=== PATIENT | female | born 1950 | race Caucasian/White ===

== ENCOUNTER 2016-09-30 05:52 | Emergency (ER) | payer MEDICARE, BC ==
--- NOTE | 2016-09-30 19:52 | ER ---
ADMIT: 09/30/2016 RM/LOC: ER [facility] MR#: [id number] [address] [address] [place] [address] Emergency Room Report SEX: F AGE: 66 : 1950 DATE: 09/30/2016 CHIEF COMPLAINT: Abdominal pain. HISTORY OF PRESENT ILLNESS: The patient is a 66-year-old female with metastatic uterine cancer, status post recent VAD and ongoing left ureteral stent for obstruction from metastatic disease. States for the past 3-4 days, she has had increasing right lower quadrant abdominal pain associated with anorexia and nausea. Denies any fevers, chills, vomiting, diarrhea, urgency or dysuria. ALLERGIES: NONE. MEDICATIONS: Please see nurse's MAR. ILLNESSES: Metastatic uterine cancer. OPERATIONS: 1. Hysterectomy. 2. Cataract extraction. 3. Nasal surgery. 4. Venous access port. 5. Left ureteral stent. SOCIAL HISTORY: . Nonsmoker. Nondrinker. No illicit drugs. FAMILY HISTORY: Negative per chart review. REVIEW OF SYSTEMS: A 12-point review of systems negative for all other systems, illnesses, or operations except as outlined above. PHYSICAL EXAMINATION: VITAL SIGNS: Temp 97, pulse 86, respirations 16, BP 171/85, SaO2 of 96% on room air. GENERAL: Nontoxic, non-diaphoretic without jaundice or icterus. HEENT: Normocephalic. No evidence of epistaxis, rhinorrhea, or otorrhea. NECK: Supple without lymphadenopathy or thyromegaly. CHEST: Clear. Breath sounds equal. HEART: Regular rate and rhythm without murmur, gallop, or edema. ABDOMEN: Soft, tender right lower quadrant without mass or megaly. Bowel sounds hypoactive. EXTREMITIES: No evidence of Homans sign, synovitis, or dermatitis. NEURO: EOMI. PERRLA. No evidence of drift, dysarthria, or ataxia. Gait normal. MENTAL STATUS: Alert, oriented, and cooperative without delusions, hallucinations, or abnormal thought content. MEDICAL DECISION MAKING: CT of abdomen and pelvis shows dilated cecum with inflammatory changes around the cecum, but no identifiable appendix. Likewise, inflammatory changes in the sigmoid rectal area, possibly related to metastatic uterine cancer. The patient is due for a staging colonoscopy in ADMIT: 09/30/2016 RM/LOC: ER [facility] MR#: [id number] [facility] [address] [address] [place] [address] [place] [address] Emergency Room Report SEX: F AGE: 66 : 1950 preparation for left nephrectomy next week. Normal CBC except hemoglobin 11.8. CRP 6.79. Lactic 1.1. Sodium 128, potassium 3.5. Troponin less than 0.015. UA 6 wbc's, 2+ ketones, 1+ leukocyte esterase. Lipase 45. The patient was given IV fluids, Zofran, Dilaudid with improvement of pain. Notified Dr. Blankenship of admission, who agreed and gave orders to nursing staff. Notified Dr. Art of consult. DIAGNOSES: 1. Metastatic uterine cancer, pending left nephrectomy. 2. Right lower quadrant abdominal pain, possible cecitis versus atypical appendicitis. 3. Hyponatremia. RECOMMENDATION: Admit inpatient Med/Surg for Dr. Blankenship. ADMISSION/DISCHARGE CONDITION: Fair. CODE STATUS: The patient is a full code. Richard Preston MD/ modl JOB #: [id number] CC: Richard Preston MD, Attending Physician Tavon Greene MD, Family Physician MD Stormy Pena MD Adam B Brosz, MD
--- NOTE | 2016-10-04 15:00 | CO ---
ADMIT: 09/30/2016 RM/LOC: ER [facility] MR#: [id number] [address] [address] [address] [address] Consultation SEX: F AGE: 66 : 1950 DATE OF CONSULTATION: 09/30/2016 ATTENDING PHYSICIAN: Richard Preston CONSULTING PHYSICIAN: Castro Art MD HISTORY OF PRESENT ILLNESS: This is a 66-year-old female, seen in the Emergency Department in consultation for possible appendicitis. Yessica describes a several month history of intermittent central abdominal pain, radiating to both lower quadrants. She has had associated diarrhea over this similar time frame, which has been quite severe. She has complicated medical history with recurrent endometrial cancer and has undergone radiation treatments in addition to her prior chemotherapy. Her last chemotherapy treatment was in October of last year. She was scheduled for colonoscopy tomorrow with Dr. Greene and was scheduled to start a bowel prep today for that. Saturday, she had worsening of the abdominal pain and had to take oral narcotic pain medication to help. The pain persisted and that is what brought her to the ER. She was evaluated with laboratory studies. She has a normal white blood cell count on evaluation in the ER. CT scan of the abdomen and pelvis was performed, and was felt to initially be indeterminate for appendicitis. PAST MEDICAL HISTORY: Recurrent endometrial cancer. ALLERGIES: NO KNOWN MEDICAL ALLERGIES. CURRENT MEDICATIONS: Please see nursing notes. SOCIAL HISTORY: She is a former smoker. Lives with her . REVIEW OF SYSTEMS: A 10-point review of systems is performed. She does describe the abdominal pain and bowel function spinning frame changer the last several months. She has some fatigue intermittently. Remainder of the 10-point review of systems is negative for recent change. FAMILY HISTORY: Noncontributory. PHYSICAL EXAMINATION: GENERAL: The patient is currently alert, oriented and appears nontoxic, in no acute distress. VITAL SIGNS: Admission vital signs are stable. She is afebrile. HEENT: Sclerae appear anicteric. NECK: Supple, without lymphadenopathy. LUNGS: Clear bilaterally. HEART: Regular rate and rhythm. ABDOMEN: Tender mildly over the right mid abdomen without cherelle peritoneal sign or palpable mass. Bowel sounds are present and normoactive. EXTREMITIES: Calves are soft bilaterally with no clubbing, cyanosis, or edema. ADMIT: 09/30/2016 RM/LOC: [facility] MR#: [id number] [address] [address] [place] [facility] [place] [address] Consultation SEX: F AGE: 66 : 1950 LABORATORY DATA: CT scan is reviewed. I do see what appears to be normal air and contrast-filled appendix without surrounding inflammatory change. I discussed this additionally with Dr. Payne. He does agree that there is normal-appearing appendix in the area. There was some mild distention in the cecum and possible thickening of the colon at the sigmoid and rectosigmoid junction level. IMPRESSION: Abdominal pain and bowel function changes, which were to be assessed tomorrow with colonoscopy. CT scan on review shows normal-appearing appendix, and she is afebrile with a normal white blood cell count and without peritoneal sign on exam. PLAN: Given the above, I do recommend that she continue the plan for colonoscopy tomorrow as her presentation is not consistent with appendicitis. I discussed admitting her and bowel prepping her and having Dr. Greene perform that here at the hospital tomorrow versus discharge to home with outpatient bowel prep and her colonoscopy as [facility]. After our discussion, she does agree and wishes to go home for bowel prep as scheduled. We discussed that if symptoms were to change or worsen, she should return for re-evaluation. She understands and agrees with this plan. Castro Art MD/ richard JOB #: [id number] CC: Richard Preston, Attending Physician Tavon Greene, Family Physician
[2016-11-29] MEDS ORDERED: KLOR-CON M2020 ME1 PO (10:58)
[2016-11-29] MEDS ORDERED: SULFASALAZINE500 MG PO (11:00)
[2016-11-29] MEDS ORDERED: TRENTAL DPS400 MG PO (11:01)
[2016-11-29] MEDS ORDERED: [UNRECOGNIZED DRUG - REMARK] PO (11:01)
[2016-11-29] MEDS ORDERED: VITAMIN E100 UNI3 PO (11:01)
[2016-11-29] MEDS ORDERED: OXY IR DPS5 MG PO (11:02)
[2017-01-21] MEDS ORDERED: MICRO-K DPS10 MEQ PO (13:15)
[2017-01-21] MEDS ORDERED: NORCO 5-325 TA1 EACH PO (13:16)
[2017-01-21] MEDS ORDERED: VITAMIN E1000 UNI3 PO (13:17)
[2017-01-21] MEDS ORDERED: MAALOX DPS30 ML PO (13:20)
[2017-01-21] MEDS ORDERED: COLACE-DPS100 MG PO (13:20)
[2017-01-21] MEDS ORDERED: FORTAZ1 GM IV (13:21)
[2017-01-21] MEDS ORDERED: TYLENOL DPS325 MG PO (13:21)
[2017-01-21] MEDS ORDERED: REMERON DPS30 MG PO (13:21)
[2017-05-24] MEDS ORDERED: MAG-OX400 MG PO (20:12)
[2017-05-24] MEDS ORDERED: KLOR-CON 1010 MEQ PO (20:13)
[2017-05-24] MEDS ORDERED: VITAMIN B-121000 MC3 PO (20:14)
[2017-05-24] MEDS ORDERED: NORCO 7.5-3251 EACH PO (20:14)
[2017-05-24] MEDS ORDERED: FORTAZ1 GM IV (20:14)
[2017-05-24] MEDS ORDERED: FEMARA DPS2.5 MG PO (20:14)
[2017-05-24] MEDS ORDERED: NORMAL SALINE FL5 ML IV (20:15)
== END 2016-09-30 08:30 | disposition home or self-care (01) ==
LOC: ER 05:52
DX: C55 Malignant neoplasm of uterus, part unspecified (principal); R10.31 Right lower quadrant pain; E87.1 Hypo-osmolality and hyponatremia; Z98.890 Other specified postprocedural states; Z79.899 Other long term (current) drug therapy

== ENCOUNTER → 2016-10-01 | Outpatient (CLI) | payer MEDICARE, BC ==
[~2016-10-01] MED LIST: COLACE-DPS100 MG PO; FEMARA DPS2.5 MG PO; FORTAZ1 GM IV; HYDROCODON-ACE1 EAC2 PO; KLOR-CON 1010 MEQ PO; KLOR-CON M2020 ME1 PO; MAALOX DPS30 ML PO; MAG-OX400 MG PO; MAGNESIUM400 MG PO; MICRO-K DPS10 MEQ PO; NORCO 5-325 TA1 EACH PO; NORCO 7.5-3251 EACH PO; NORMAL SALINE FL5 ML IV; OXY IR DPS5 MG PO; PRILOSEC DPS20 MG PO; REMERON DPS30 MG PO; SULFASALAZINE500 MG PO; TRENTAL DPS400 MG PO; TYLENOL DPS325 MG PO; VITAMIN B-121000 MC3 PO; VITAMIN E100 UNI3 PO; VITAMIN E1000 UNI3 PO; [UNRECOGNIZED DRUG - REMARK] PO
== END | disposition home or self-care (01) ==
LOC: RAD.S 10:40
DX: R19.7 Diarrhea, unspecified (principal); R11.0 Nausea; K56.69 Other intestinal obstruction; Z96.0 Presence of urogenital implants

== ENCOUNTER 2016-10-03 10:11 | Inpatient (IN) | payer MEDICARE, BC ==
[~2016-10-03] VITALS: Ht 172.7 cm; Wt 58.6 kg
--- NOTE | ~2016-10-03 | WND ---
ADMIT: 10/03/2016 RM/LOC: 518 [facility] MR#: [id number] [address] [address] [place] [address] [place] [address] Wound Care Clinic SEX: F AGE: 66 : 1950 DATE OF VISIT: 10/09/2016 TIME IN: 09:30. TIME OUT: 09:45. All 15 minutes were spent in ostomy education. HISTORY OF PRESENT ILLNESS: This is an established wound care patient, who is being followed for end colostomy education and cares. She has metastatic endometrial cancer status post radiation and chemotherapy. She is status post VAD and ongoing left urethral stent from obstruction from metastatic disease. She had developed significant nausea, vomiting, abdominal pain, and diarrhea and was seen by Dr. Greene. She underwent an exploratory laparotomy with diverting left lower quadrant end colostomy. Wound Care is following for ostomy cares and education. REVIEW OF SYSTEMS: She is examined in her hospital room where she is awake, alert, and oriented x3. She states her abdominal pain is rated at 4 to 5. It is now being controlled with oral pain medications. She said her appetite is decreased, but she is aware of dietary needs. She states that she does not like dairy. She notes she does not eat lettuce or nuts or acidic food. However, she is trying to take in fluids and food. She is hoping to go home later today. She lives with her friend, Kervin, who will help assist in her cares as well as help get the food she needs to eat. She is aware of what protein to have. She denies any fever chills. No nausea or vomiting. No cough, cold, or chest pain. She states she is able to get to the bathroom without difficulty, and she has been successful in emptying her pouch. She knows to clean the end of the pouch. She also states she feels quite comfortable and applying a new wafer and pouch if she would happen to have a significant leak. PHYSICAL EXAMINATION: Focused exam is to her abdomen. Her abdomen is flat. Her Tadeo-Araya has been removed, and there is no drainage noted at the site. It is currently covered with a 4 x 4. To left lower quadrant is her ostomy that is slightly oval, dusky in appearance with some yellowish and brownish slough tissue. There is fecal effluent in the pouching system. Her stoma appears to be flat or below the skin surface. The ostomy appliance was not removed today since it was changed yesterday. VITAL SIGNS: Today; temperature 96.9, pulse 89, respirations 16 blood pressure 164/82, and O2 sats on room air 91%. ASSESSMENT: Functioning end colostomy. TREATMENT PLAN: Education continued for the entire visit. Reinforced the ADMIT: 10/03/2016 RM/LOC: 518 [facility] MR#: [id number] [address] [place], [place] [address] [address] [place] [address] Wound Care Clinic SEX: F AGE: 66 : 1950 need to get adequate protein to help with tissue healing. Answered questions regarding the ostomy change. She elected not to have Home Health Care at this point in time, but we will present to [facility] as an outpatient on 10/12/2016 at 10:00 in the morning. She also reported that she feels quite comfortable in caring for her ostomy at home. She does realize it is a learning period, but feels strong in her ability to take care of it. She is encouraged to call with any questions or concerns prior to that time. She voiced understanding of physical findings and treatment plan. Thank you for this referral, and Wound will continue to follow. Radhika Arriaga APRN/ richard JOB #: [id number] CC: Tavon Greene MD, Attending Physician Stormy Hawk MD, Family Physician
--- NOTE | ~2016-10-03 | WND ---
ADMIT: 10/03/2016 RM/LOC: 518 [facility] MR#: [id number] [address] [address] [place] [address] Wound Care Clinic SEX: F AGE: 66 : 1950 DATE OF VISIT: 10/05/2016 TIME IN: 1515 hours. TIME OUT: 1615 hours. REASON FOR VISIT: Ostomy education and cares. This is request for wound care from Dr. Greene. HISTORY OF PRESENT ILLNESS: This is a 66-year-old female with metastatic endometrial and uterine cancer, status post radiation and chemotherapy. She is also status post VAD and ongoing left urethral stent from obstruction from metastatic disease. She developed significant nausea, vomiting, abdominal pain, and diarrhea and was seen by Dr. Greene. She underwent an exploratory laparotomy with diverting left lower quadrant end-colostomy. This is her first postop day. REVIEW OF SYSTEMS: She is examined in her hospital room where she is awake, but she is in significant pain that she says ranges from 5 to 9. She said that at times she feels a stabbing sensation. She is dealing with nausea, but no vomiting. She was able to take some broth and Jell-O. She states her throat is sore. She is passing flatus and even has had output from her stoma. PHYSICAL EXAMINATION: Focused exam is to her abdomen. Her abdomen is slightly distended in the left lower quadrant that is circular, dark maroon in color, and flat to the skin surface. Mucocutaneous junction is intact with sutures. No surrounding erythema or induration in the peristomal area. She does have a Tadeo-Araya in place to her lower abdomen with serous fluid. In her pouching system is a 100 mL of fecal liquid effluent. ASSESSMENT: Functioning diverting left lower quadrant end-colostomy secondary to exploratory laparoscopy due to sigmoid colon obstruction secondary to radiation injury. TREATMENT PLAN: Twenty minutes of the visit was spent on ostomy education. Because of her current pain and discomfort the session was shortened. ADMIT: 10/03/2016 RM/LOC: 518 [facility] MR#: [id number] [address] [address] [place] [address] [place] [address] Wound Care Clinic SEX: F AGE: 66 : 1950 The old ostomy appliance was removed using adhesive remover. Peristomal area was cleansed with water only and allowed to dry. Shay New Image 70 mm formal flex wafer #[id number] with pouch #[id number] was applied. She is encouraged to hold her hand over the ostomy appliance to help with adherence. Orders written to change the pouch every 3 to 4 days and p.r.n. leakage. Also, requested the pouch be emptied when it is a third full. We requested that staff began to work with her in emptying her pouch. Patient expressed understanding. She is willing to learn, but does not feel well today. surgical services asst are working with her regarding home health care. Shay valdez was sent home. Thank you for this referral and wound will continue to follow. Radhika Arriaga APRN/ richard JOB #: [id number] CC: Tavon Greene, Attending Physician Stormy Hawk, Family Physician
--- NOTE | ~2016-10-03 | OR ---
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 PROCEDURE: Exploratory laparoscopy with diverting left lower quadrant end- colostomy. INDICATIONS: Patient is a 66-year-old who presents with nausea, vomiting, abdominal pain, and diarrhea after having pelvic radiation for recurrent uterine cancer who presents for diverting colostomy. FINDINGS: The patient was taken to the operating room. General endotracheal anesthesia was induced. The patient's abdomen was prepped and draped in normal sterile fashion. The case was begun by making a transverse, supraumbilical 5 mm skin incision using #11 blade. A retractable 5-mm port was placed within the abdomen. The abdomen was insufflated with CO2 to an intra-abdominal pressure of 15 mmHg. A camera was placed showing no bowel or vascular injury. There was diffuse dilated small and large bowel loops throughout the abdomen. Upon entering the abdomen, there was a fair amount of bilious colored ascites in the pelvis which was irrigated and suctioned out. Due to the obstruction, the colon was quite dilated, there did appear to be a lot of cecal distention. There may have been a small serotomy and even one small area that looked like a possible small pinpoint cecal perforation. At this point in time, after I placed a right upper quadrant 5 mm port and a right lower quadrant 12 mm port under direct vision, I closed the small serotomy/enterotomy with a figure-of- eight 0 Vicryl suture with an Endo-stitch. I did not see any further evidence of cecal injury at all. You could clearly see the area of obstruction at the pelvic inlet, this was just cemented there and I elected to see if I could come right now proximal to this obstruction, which I was able to with Harmonic scalpel. Mobilized the sigmoid colon from the retroperitoneum and mobilized the visceral peritoneum along the medial aspect of the sigmoid mesentery with Harmonic scalpel. I made a window behind the sigmoid colon and divided the sigmoid with 2 firings of an Endo-YURI 45, 3.5 mm stapler. Divided the sigmoid mesentery with one firing of an EndoGIA 45, 2.5 mm stapler. I felt like I had a nice mobile length of the sigmoid colon that appeared to have a good blood supply to it. We brought it out through the left lower quadrant colostomy site which I made with a #10 blade, cautery and finger dilation. Examining the ADMIT: 10/03/2016 RM/LOC: 518 [facility] MR#: [id number] [address] [place] [address] [place] [address] [place] [address] Operative/Delivery Room Report SEX: F AGE: 66 : 1950 bowel externally appeared to be adequate for end colostomy. I re-insufflated the intra-abdominal space, closed the right lower quadrant 12 mm port fascial incision with a [id number] 0 Polysorb suture passer after placing a 19- Swedish round MARKO drain into the pelvis and suturing it to the skin with a 2-0 silk suture. The air was desufflated. The port sites were removed. The skin sites were closed with interrupted 4-0 Vicryl subcuticular skin stitches. I then divided the sigmoid colon at the ostomy site with cautery and matured the stoma even with the skin with interrupted 3-0 Vicryl sutures incorporating full-thickness bowel through the subdermal layer. We then placed a stomal appliance over the top of this ostomy site. The patient tolerated the procedure without difficulty, was wheeled to the recovery room in good condition. Tavon Greene MD/ richard JOB #: [id number] CC: Tavon Greene, Attending Physician Stormy Hawk, Family Physician
--- NOTE | ~2016-10-03 | WND ---
ADMIT: 10/03/2016 RM/LOC: 518 [facility] MR#: [id number] [address] [address] [place] [address] Wound Care Clinic SEX: F AGE: 66 : 1950 DATE OF VISIT: 10/03/2016 TIME IN: 1330 hours. TIME OUT: 1210 hours. REASON FOR VISIT: Ostomy education and diverting colostomy marking. This is a request for wound care from Dr. Greene. HISTORY OF PRESENT ILLNESS: This is a 66-year-old female with metastatic uterine cancer status post radiation and chemotherapy. She is also status post VAD and ongoing left urethral stent from obstruction from her metastatic disease. She reports that she was actually scheduled for a left nephrectomy on October 11, 2016; however, in the interim, she has developed significant abdominal pain. She was seen in the emergency room on 09/30/2016, with increasing right lower abdominal quadrant pain associated with anorexia, nausea, and diarrhea. She was actually seen by Dr. Art, and after reviewing the abdominal CT scan, had ruled out appendicitis. Therefore, she was prepped for colonoscopy. However, she reported that when Dr. Greene attempted to do the colonoscopy was unable to because of strictures. It was also noted that she had significant dehydration, so she is admitted to Short-Stay Surgery today for rehydration and awaiting transfer to the inpatient status, so she can undergo surgery on 10/04/2016. Dr. Greene requested that wound care manjinder for a diverting colostomy in the right lower quadrant. PAST MEDICAL HISTORY: Significant for metastatic uterine cancer with endometrial carcinoma. Status post radiation and chemotherapy. 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 PAST SURGICAL HISTORY: Includes hysterectomy on 12/19/2009 for endometrial cancer. Nose surgery in 1968. Vaginal delivery in 1974. Cystoscopy. Cataract extraction. Venous access port. Left urethral stent. HOME MEDICATIONS: 1. Magnesium 400 mg p.o. daily. 2. Letrozole 2.5 mg p.o. daily. 3. Hydrocodone 5/325, 1 p.o. every 4 to 6 hours p.r.n., pain. 4. Omeprazole 20 mg p.o. daily. ALLERGIES: No known medication allergies. FAMILY HISTORY: Significant for heart disease, hypertension, breast cancer in a sister. Colon cancer in an aunt. SOCIAL HISTORY: She has high school education. She is a former smoker. She quit in November of 2004. No current alcohol or chemical use. She is self- employed at [employer]. She lives with her significant other. REVIEW OF SYSTEMS: She is examined in Short-Stay Surgery where she is ADMIT: 10/03/2016 RM/LOC: 518 [facility] MR#: [id number] [address] [address] [address] [place], [place] [address] [address] Wound Care Clinic SEX: F AGE: 66 : 1950 receiving IV fluids and preparing for admission to the inpatient status. She is alert, awake, and oriented x3. She does have glasses for vision, and she does have hearing aids. She says her height is 5 feet 8 inches and her weight is 125 pounds today. She denies any recent fever or chills. She does have nausea, denies any vomiting. She states she has diarrheal stools. She does have abdominal discomfort. No recent cough or chest pain. PHYSICAL EXAMINATION: Focused exam is to her abdomen. Her abdomen is firm with loose skin. She is examined in the standing sitting and supine position. Her rectus muscle is identified in the right lower quadrant. ASSESSMENT: Preop diverting colostomy stoma marking in right lower quadrant as well as ostomy teaching. TREATMENT PLAN: After identifying the rectus muscle in all 3 positions, her stoma site was marked with a surgical marker. This was then sealed with no Sting Barrier spray. 35 minutes of the 40-minute appointment was spent in ostomy education. She did receive the ostomy packet. She consented to the secure start program. Reviewed normal anatomy and physiology of GI System. Reviewed normal characteristics of the stoma as well as the normal care of the stoma. Questions were answered. She was introduced to the ostomy secrets. She voices that she is somewhat overwhelmed because she just found out less than 24 hours ago that she would need an ostomy. However, she does have a friend, who has worked with ostomy before. She voiced understanding of the education, asked appropriate questions that were answered. Thank you for this referral, and Wound will continue to follow while she is inpatient and after discharge. Radhika Arriaga APRN/ richard JOB #: [id number] CC: Tavon Greene, Attending Physician Stormy Hawk, Family Physician
[2016-10-10] MEDS ORDERED: MAGNESIUM400 MG PO (13:16)
[2016-10-10] MEDS ORDERED: HYDROCODON-ACE1 EAC2 PO (13:16)
[2016-10-10] MEDS ORDERED: FEMARA DPS2.5 MG PO (13:16)
[2016-10-10] MEDS ORDERED: PRILOSEC DPS20 MG PO (13:17)
[2016-11-29] MEDS ORDERED: KLOR-CON M2020 ME1 PO (10:58)
[2016-11-29] MEDS ORDERED: SULFASALAZINE500 MG PO (11:00)
[2016-11-29] MEDS ORDERED: [UNRECOGNIZED DRUG - REMARK] PO (11:01)
[2016-11-29] MEDS ORDERED: TRENTAL DPS400 MG PO (11:01)
[2016-11-29] MEDS ORDERED: VITAMIN E100 UNI3 PO (11:01)
[2016-11-29] MEDS ORDERED: OXY IR DPS5 MG PO (11:02)
--- NOTE | 2016-12-28 10:17 | DS ---
ADMIT: 10/03/2016 RM/LOC: 518 [facility] MR#: [id number] [address] [address] [place] [address] Discharge Summary SEX: F AGE: 66 : 1950 CORRECTED: 12/05/2016 1253 DJ ADMISSION DATE: 10/03/2016 DISCHARGE DATE: 10/09/2016 ADMITTING DIAGNOSIS: Sigmoid colon obstruction secondary to radiation injury. DISMISSAL DIAGNOSES: Sigmoid colon obstruction secondary to radiation injury. Fibrous adhesions with acute and chronic serositis were noted upon pathology. PROCEDURES: Exploratory laparoscopy with diverting left lower quadrant end colostomy. HOSPITAL COURSE: The patient was an inpatient admit with routine Med/Surg orders. Wound Care was consulted to help with ostomy cares. Overall, the patient recovered well while in the hospital. She was given a morphine DOCUMENT DESIGN SPECIALIST for pain control. A Rodriguez that was placed intraoperatively was pulled on postoperative day number two. She was tolerating an advanced diet and had good output through her ostomy. She was weaned off her morphine DOCUMENT DESIGN SPECIALIST and was tolerating oral pain medications. Vitals remained stable while in her hospital stay. She continued to recover well and was eventually able to discharge to home on 10/09/2016. DISCHARGE INSTRUCTIONS: 1. Follow up with Dr. Greene on October 15. 2. Follow up in Wound Care Clinic on October 12 and also on October 26. DISCHARGE MEDICATION LIST: 1. Magnesium 400 mg daily. 2. Letrozole 2.5 mg daily. 3. Hydrocodone/acetaminophen 5/325, 1-2 tabs q.4 hours p.r.n. 4. Prilosec 20 mg daily. LUCERO Camarena / Tavon Greene MD / damian JOB #: [id number] CC: Tavon Greene MD, Attending Physician Stormy Hawk MD, Family Physician CORRECTED: 12/05/2016 1253 DJS
[2017-01-21] MEDS ORDERED: MICRO-K DPS10 MEQ PO (13:15)
[2017-01-21] MEDS ORDERED: NORCO 5-325 TA1 EACH PO (13:16)
[2017-01-21] MEDS ORDERED: VITAMIN E1000 UNI3 PO (13:17)
[2017-01-21] MEDS ORDERED: MAALOX DPS30 ML PO (13:20)
[2017-01-21] MEDS ORDERED: COLACE-DPS100 MG PO (13:20)
[2017-01-21] MEDS ORDERED: REMERON DPS30 MG PO (13:21)
[2017-01-21] MEDS ORDERED: FORTAZ1 GM IV (13:21)
[2017-01-21] MEDS ORDERED: TYLENOL DPS325 MG PO (13:21)
[2017-05-24] MEDS ORDERED: MAG-OX400 MG PO (20:12)
[2017-05-24] MEDS ORDERED: KLOR-CON 1010 MEQ PO (20:13)
[2017-05-24] MEDS ORDERED: VITAMIN B-121000 MC3 PO (20:14)
[2017-05-24] MEDS ORDERED: FEMARA DPS2.5 MG PO (20:14)
[2017-05-24] MEDS ORDERED: NORCO 7.5-3251 EACH PO (20:14)
[2017-05-24] MEDS ORDERED: FORTAZ1 GM IV (20:14)
[2017-05-24] MEDS ORDERED: NORMAL SALINE FL5 ML IV (20:15)
== END 2016-10-09 14:16 | disposition home or self-care (01) | DRG 907 ==
LOC: WOR 10:11 → 5MS 10:11
PROVIDERS: ADMIT Surgery
DX: T66.XXXA Radiation sickness, unspecified, initial encounter (principal); K65.8 Other peritonitis; K56.60 Unspecified intestinal obstruction; R18.8 Other ascites; E86.0 Dehydration; K29.50 Unspecified chronic gastritis without bleeding; R19.7 Diarrhea, unspecified; Z85.42 Personal history of malignant neoplasm of other parts of uterus; K66.0 Peritoneal adhesions (postprocedural) (postinfection); Z96.0 Presence of urogenital implants

== ENCOUNTER 2016-10-04 15:12 | Inpatient (IN) | payer MEDICARE, BC ==
[~2016-10-04] VITALS: Ht 172.7 cm; Wt 62.7 kg
--- NOTE | ~2016-10-04 | WND ---
ADMIT: 11/21/2016 RM/LOC: 424 [facility] MR#: [id number] [address] [address] YESSICA WHITTAKER [address] [place] [address] Wound Care Clinic SEX: F AGE: 66 : 1950 DATE OF VISIT: 11/23/2016 REASON FOR VISIT: Ostomy education. HISTORY OF PRESENT ILLNESS: Yessica is a 66-year-old female, who is back in the hospital for a stomal revision. She was diagnosed with metastatic uterine cancer status post radiation and chemotherapy. She is also status post VAD ongoing left urethral stent from obstruction from her metastatic disease. On September 30, 2016, she was seen in the emergency room with increasing right lower abdominal pain with anorexia, nausea, and diarrhea. She was in for colonoscopy with Dr. Art; however, it was difficult to complete the procedure noted secondary to strictures. She underwent surgical placement of a diverting colostomy on October 04, 2016. She was discharged from the hospital on October 09, 2016. She was followed in Wound Clinic for ostomy cares. Her stoma has completely at the mucocutaneous junction and was necrotic. She had undermining noted under the layer of good skin. She did have a history of presenting multiple times to outpatient wound clinic with help on her ostomy appliance as she endured a lot of leakage. She underwent surgery on November 21, [address] Greene where they did exploratory laparotomy with extensive lysis of adhesions, ileocolic resection with primary ileocolic reanastomosis with revised end colostomy with splenic flexure mobilization. She is being seen today for evaluation of surgical incision and the revised ostomy. PAST MEDICAL HISTORY: Significant for metastatic uterine cancer with endometrial carcinoma. 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 PAST SURGICAL HISTORY: Includes hysterectomy on 12/19/2009, for endometrial cancer. Nose surgery in 1968, vaginal delivery in 1974, cystoscopy, cataract extraction, and venous access port left urethral stent. CURRENT MEDICATIONS: 1. Dilaudid. 2. . 3. Lovenox. 4. Mefoxin. 5. Pepcid. ALLERGIES: No known drug allergies. FAMILY HISTORY: Significant for heart disease, hypertension, breast cancer in a sister, and colon cancer in an aunt. SOCIAL HISTORY: Yessica is a former smoker. She quit in November of 2004. She denies any alcohol or illicit drug use. She has been self-employed at [employer]. She lives with her significant other. ADMIT: 11/21/2016 RM/LOC: 424 [facility] MR#: [id number] 26[address] [place] [id number] [place], [place] [address]YESSICA [address] [place] [address] Wound Care Clinic SEX: F AGE: 66 : 1950 REVIEW OF SYSTEMS: She is examined in Short-Stay Surgery where she is undergoing an epidural and does appear to be very sleepy. She is alert and oriented x3. She does have some abdominal pain related to her recent surgery on November 21, 2016. PHYSICAL EXAMINATION: A focused examination of her abdomen reveals an incision that is well approximated down the midline with paul. It is 13 cm in length. She has an oval shape stoma off to the left of the incision. The stoma is well abutted above the skin. There is a dark maroon area that is approximately 2 cm in length x 0.5 cm in width. It extends out from about 1 o'clock down to the center os. The mucocutaneous junction is intact. There is no peristomal breakdown. She did note to have some leakage between 6 to 8 o'clock of brown liquid effluent. ASSESSMENT: 1. Preop revised colostomy. 2. 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 PLAN: Wound VAC was placed over the incision to be sure that there would be no dehiscence. We did change her ostomy appliance at the bedside. She was very sleepy and it was difficult to provide much education; however, this is her 2nd ostomy, so she is very versed in taking care of it. We will follow up with her next week in the hospital. Currently, we are using appliance . I would like to thank Dr. Greene for allowing us to participate in Yessica's care. Lisa Lopez APRN/ richard JOB #: [id number] CC: Tavon Greene, Attending Physician Stormy Hawk, Family Physician
[2016-10-10] MEDS ORDERED: MAGNESIUM400 MG PO (13:16)
[2016-10-10] MEDS ORDERED: HYDROCODON-ACE1 EAC2 PO (13:16)
[2016-10-10] MEDS ORDERED: FEMARA DPS2.5 MG PO (13:16)
[2016-10-10] MEDS ORDERED: PRILOSEC DPS20 MG PO (13:17)
--- NOTE | 2016-11-26 08:52 | OR ---
ADMIT: 11/21/2016 RM/LOC: 503 [facility] MR#: [id number] [address] [address] [place] [address] Operative/Delivery Room Report SEX: F AGE: 66 : 1950 SURGERY DATE: 11/21/2016 SURGEON: Tavon Greene MD HIGH SCHOOL SCIENCE TEACHER: Dejuan Kuhn MD PREPROCEDURE DIAGNOSIS: History of colonic obstruction status post Ronak pouch end colostomy with stricturing end colostomy site. POSTPROCEDURE DIAGNOSIS: Severe radiation colitis, severe radiation enteritis with extensive adhesions. PROCEDURE: Exploratory laparotomy with extensive lysis of adhesions, ileocolic resection with primary ileocolic reanastomosis with revised end colostomy with splenic flexure mobilization. INDICATIONS: The patient is a 66-year-old female who has had endometrial cancers, had surgery and radiation treatment for endometrial cancer, had recurrent endometrial cancer then another dose of radiation therapy to her pelvis who about 2 months ago developed colonic obstructive symptoms. Her rectosigmoid is almost completely obstructed. She underwent exploratory laparoscopy with a diverting end colostomy Ronak pouch. Postprocedure, she has had some recoveries, weight gain, her nutrition has improved, but she had some narrowing or stricturing of her end colostomy site. After preoperative counseling, the discussion revolved around colostomy revision, and if not doable, possibly having to do a more proximal loop colostomy. FINDINGS: The patient was taken to the operative room. General endotracheal anesthesia was induced. The patient's abdomen was prepped and draped in normal sterile fashion. The case was begun by making elliptical skin incision around the previous left lower quadrant colostomy site with a #15 blade. Dissection was carried down through the subcutaneous fat down to the anterior abdominal wall fascia using electrocautery and careful Metzenbaum scissor dissection. As we continued this dissection, we were able to enter into the intra-abdominal space. We were unable to find any viable usable left colon to pull up into the ostomy site. During the course of this dissection, we were able to evaluate the distal small bowel that was quite friable, inflamed, and damaged. I felt like I had to assess this further, and my intent was then to do a possibly a mucous fistula and transverse loop colostomy, so therefore I converted to an open laparotomy with a #10 blade dissection was carried down through subcutaneous fat and fascia and perineum using electrocautery. Upon entering the intra-abdominal space, the patient's distal ileum had very severe radiation damage with impending obstruction of the distal ileum. I had consideration of using the previous end colon as a mucous fistula bring up a loop colostomy. I did not feel comfortable leaving that distal ileum as again it was clearly obstructed and severely damaged. Therefore, just as this small bowel is entering into the pelvis, this severely damaged small bowel, I divided the bowel with 75 YURI stapler, and then after discussion, we did not feel comfortable leaving that severely damaged distal ileum in situ thought ADMIT: 11/21/2016 RM/LOC: 503 [facility] MR#: [id number] [address] [address] [place] [address] [place] [address] Operative/Delivery Room Report SEX: F AGE: 66 : 1950 about bringing up an end ileostomy, but I thought there is a possibility that this could be high-output ileostomy despite having a very long length of proximal small bowel that was available to us; therefore, we elected to just carefully remove and excise the whole distal ileum and proximal right colon, and an ileocolic resection dividing the mid right colon with a 75 YURI stapler and dividing the mesentery between clamps and 0 Vicryl ties. We did have to do some suture ligature. This dissection was extremely difficult due to the very dense adhesions of the small bowel and small bowel mesentery to the retroperitoneum as there was concern regarding potentially running into some retroperitoneal vessel bleed. We were able to avoid this. We were able to identify the right ureter during the course of our right colon mobilization, keep it free from our area of dissection. We were able to visibly watch it function. We then did a splenic flexure mobilization so that we could more freely get our previous left colon to our left lower quadrant ostomy site freely without tension; therefore, we did an ileocolic reanastomosis by dividing the antimesenteric border of our staple lines, do a [id number]-[id number] stapled ileocolic anastomosis with a 75 YURI stapler closing the common enterotomy with a 75 YURI stapler. I reinforced the apex of this staple line with interrupted 3-0 silk seromuscular suture and oversewed the common enterotomy staple line with running 3-0 silk seromuscular suture. There was a visible and a palpable good blood supply to this ileal colic anastomosis. I then irrigated the entire intraabdominal space with 2 or 3 L of warm saline to the irrigant was nice and clear. There were no complicating features. The left colon did not pull up into our previous ostomy site freely without tension. I did have to close down this fascial defect with 2 interrupted [id number]-[id number] single stranded #1 PDS suture. I then closed the midline wound with running looped #1 PDS suture, closed the skin with interrupted skin paul. We then matured the left lower quadrant ostomy by excising the staple line and suturing the full-thickness of the bowel wall to the surrounding subdermal layer with interrupted 3-0 Vicryl suture. We placed an ostomy appliance over the top of this. The patient tolerated the procedure without difficulty, was wheeled to recovery room in good condition. Tavon Greene MD/ richard JOB #: [id number] CC: Tavon Greene, Attending Physician Stormy Hawk, Family Physician
[2016-11-29] MEDS ORDERED: KLOR-CON M2020 ME1 PO (10:58)
[2016-11-29] MEDS ORDERED: SULFASALAZINE500 MG PO (11:00)
[2016-11-29] MEDS ORDERED: VITAMIN E100 UNI3 PO (11:01)
[2016-11-29] MEDS ORDERED: TRENTAL DPS400 MG PO (11:01)
[2016-11-29] MEDS ORDERED: [UNRECOGNIZED DRUG - REMARK] PO (11:01)
[2016-11-29] MEDS ORDERED: OXY IR DPS5 MG PO (11:02)
--- NOTE | 2016-12-04 09:43 | CO ---
ADMIT: 11/21/2016 RM/LOC: 424 [facility] MR#: [id number] 2620 [facility] [address] [place], [place] [address] EMEKA WHITTAKER [address] [place] [address] Consultation SEX: F AGE: 66 : 1950 DATE OF CONSULTATION: 11/24/2016 ATTENDING PHYSICIAN: Tavon Greene CONSULTING PHYSICIAN: Stephanie Rosado MD REASON FOR CONSULTATION: Medical management of cough and hypokalemia. HISTORY OF PRESENT ILLNESS: Ms. Whittaker is a very pleasant, 66-year-old female. She has a past medical history significant for history of endometrial carcinoma diagnosed first in 11/2009. She has had some further surgeries of her stomach due to obstruction, apparently was admitted on 12/22 and at that time, was admitted for obstructive like symptoms. She went down for surgery on 12/22, had resection of adhesions, lymph nodes as well as an appendectomy. She is currently postop. She, postop as noted initially to be quite tachycardiac and had difficulty with pain control, however, this seems to be doing better. She does have a Dilaudid epidural and they are going to start some p.o. pain medications today. She was noted to be hypokalemic, her creatinine had gone from 0.8 to 2, it is now down to 1.5. She also was noted to have hypokalemia. She has a cough that is not productive, but she reports she is really unable to cough things up otherwise. She is not really been requiring any oxygen. PAST MEDICAL HISTORY: Significant for: 1. Endometrial carcinoma status post radiation and chemo. She was treated with a hysterectomy on 12/19/2009. 2. She has underwent a laparotomy, diverting colostomy, 09/2016. 3. She is status post nephrostomy tube placement previously. 4. Status post stent placement on the left kidney. 5. Status post nose surgery in 1968. 6. She also has a history of a cataract on both sides that are removed. MEDICATION LIST: Currently is: 1. All IV just fluids. 2. Lovenox. 3. Mefoxin. 4. Pepcid. 5. Dilaudid epidural. SOCIAL HISTORY: She is a former smoker, but quit in 2004. Does not use any significant alcohol. FAMILY HISTORY: Positive for heart disease, cancer, hypertension, but no diabetes. ALLERGIES: LISTED NO KNOWN MEDICAL ALLERGIES. REVIEW OF SYSTEMS: Obtained, was otherwise essentially negative. ADMIT: 11/21/2016 RM/LOC: 424 [facility] MR#: [id number] [address] [address] [place] [facility] [place] [address] Consultation SEX: F AGE: 66 : 1950 PHYSICAL EXAMINATION: GENERAL: She is pale. She is in no apparent distress. HEENT: Pupils are round and reactive. Oropharynx is very dry mucous membranes. NECK: Supple. HEART: Tachycardic rate with a regular rhythm. LUNGS: Have diminished breath sounds. Left with a few crackles. Right is clear. ABDOMEN: She has ostomy, wound VAC. Her abdomen is soft. Bowel sounds are hypoactive. EXTREMITIES: Have no evidence of edema. ASSESSMENT/PLAN: 1. Abdominal pain. 2. Status post resection of her appendix and adhesiolysis. At this time, she is on Dilaudid. They are starting oral pain medications. 3. Hypokalemia. We will replace and check magnesium. 4. Cough. 5. Elevated creatinine. We will monitor closely with her previous left renal dysfunction. 6. Decreased p.o. intake. The patient has a history of taking Megace at home. We will go ahead and resume her Megace, otherwise we will follow along. I spent 45 minutes in the consultation of this patient. Stephanie Rosado MD/ richard JOB #: [id number] CC: Tavon Greene, Attending Physician Stormy Hawk, Family Physician
--- NOTE | 2016-12-28 10:17 | DS ---
ADMIT: 11/21/2016 RM/LOC: 524 [facility] MR#: [id number] [address] [address] [place] [address] Discharge Summary SEX: F AGE: 66 : 1950 ADMISSION DATE: 11/21/2016 DISCHARGE DATE: 11/28/2016 ADMITTING DIAGNOSIS: History of colonic obstruction, status post Ronak pouch end colostomy with stricturing at end colostomy site. DISMISSAL DIAGNOSES: 1. End colostomy stricturing, history of colonic obstruction, status post Ronak's pouch. 2. Severe radiation colitis and enteritis with extensive adhesions. 3. Endometrial carcinoma, status post radiation and chemo subsequent hysterectomy. 4. Status post nephrostomy and left kidney stent placement. 5. Status post nose surgery. 6. Cataracts, status post surgery. PROCEDURES: 1. Exploratory laparotomy with extensive lysis of adhesions. 2. Ileocolic resection with primary ileocolic reanastomosis with revised end colostomy and splenic flexure mobilization. HOSPITAL COURSE: The patient was an inpatient admit with routine med surg orders. She was started on clears and given a morphine FRUIT INSPECTOR. Immediately after surgery, the patient transferred to the floor and was noted to be tachycardic. She was initially treated with an Ativan liter boluses of normal saline and her D5 LR maintenance fluids running at 200 mL an hour. She also did have quite a bit of pain postop that she was first treated with IV Tylenol and then ultimately an epidural. Wound Care was consulted with ostomy cares. Her tachycardia did improve but then she became hypertensive. This was treated with hydralazine, Levatol, and maintenance fluids dropped to 125 mL an hour. Lab draw on 11/23/2016 revealed a hemoglobin of 6.7 so the patient was typed and crossed for 2 units and was given 1 unit at this time. She transferred from med/surg to tele. After the 1st unit of PRBCs were given, the patient received the 2nd unit. Slowly, the patient began to improve. Given the complexity of this hospital stay at this point, Dr. Rosado was consulted to help in the medical management of this case. A Rodriguez that was placed intraoperatively was pulled on 11/26/2016, and her epidural was pulled prior to this. Pain slowly began to improve. She was not nauseous, and she had good ostomy output. Electrolytes, lab work, and vitals began to normalize at this time. She was weaned off her morphine FRUIT INSPECTOR and was tolerating oral pain medications. The patient stabilized and was deemed accessible to go home so she discharged home on 11/28/2016. DISCHARGE INSTRUCTIONS: 1. Follow up with Dr. Rosado on Saturday, December 12. 2. Follow up with Dr. Greene on December 10. 3. Acquire a B12 and BMP on November 30 four seven. ADMIT: 11/21/2016 RM/LOC: 524 [facility] MR#: [id number] [address] [address] [facility] EME[place] Roman [facility] [place] [address] Discharge Summary SEX: F AGE: 66 : 1950 DISCHARGE MEDICATION LIST: 1. Letrozole 2.5 mg daily. 2. Magnesium 400 mg daily. 3. Omeprazole 20 mg daily. 4. Hydrocodone 7.5 one to two tabs q.4-6 hours p.r.n. 5. Klor-Con daily. 6. Sulfasalazine 500 mg t.i.d. 7. Vitamin E daily. 8. Appetite enhancement daily. 9. Pentoxipylline 400 mg t.i.d. 10.Hydrocodone immediate release 5 mg 1 tab q.4h p.r.n. LUCERO Camarena / Tavon Greene MD / vi JOB #: [id number] CC: Tavon Greene MD, Attending Physician Stormy Hawk MD, Family Physician
[2017-01-21] MEDS ORDERED: MICRO-K DPS10 MEQ PO (13:15)
[2017-01-21] MEDS ORDERED: NORCO 5-325 TA1 EACH PO (13:16)
[2017-01-21] MEDS ORDERED: VITAMIN E1000 UNI3 PO (13:17)
[2017-01-21] MEDS ORDERED: COLACE-DPS100 MG PO (13:20)
[2017-01-21] MEDS ORDERED: MAALOX DPS30 ML PO (13:20)
[2017-01-21] MEDS ORDERED: REMERON DPS30 MG PO (13:21)
[2017-01-21] MEDS ORDERED: FORTAZ1 GM IV (13:21)
[2017-01-21] MEDS ORDERED: TYLENOL DPS325 MG PO (13:21)
[2017-05-24] MEDS ORDERED: MAG-OX400 MG PO (20:12)
[2017-05-24] MEDS ORDERED: KLOR-CON 1010 MEQ PO (20:13)
[2017-05-24] MEDS ORDERED: FORTAZ1 GM IV (20:14)
[2017-05-24] MEDS ORDERED: FEMARA DPS2.5 MG PO (20:14)
[2017-05-24] MEDS ORDERED: NORCO 7.5-3251 EACH PO (20:14)
[2017-05-24] MEDS ORDERED: VITAMIN B-121000 MC3 PO (20:14)
[2017-05-24] MEDS ORDERED: NORMAL SALINE FL5 ML IV (20:15)
== END 2016-11-28 12:58 | disposition home or self-care (01) | DRG 330 ==
LOC: 4PCU 11-21 08:57 → WOR 11-21 08:57 → 5MS 11-21 08:57 → 4PCU 11-23 08:03 → 5MS 11-26 16:09
PROVIDERS: ADMIT Surgery
PROC: 0DBF0ZZ Excision of Right Large Intestine, Open Approach (ICD-10-PCS; principal; 2016-11-21)
PROC: 0DBB0ZZ Excision of Ileum, Open Approach (ICD-10-PCS; principal; 2016-11-21)
PROC: 0D1M0Z4 Bypass Descending Colon to Cutaneous, Open Approach (ICD-10-PCS; principal; 2016-11-21)
PROC: 30233N1 Transfusion of Nonautologous Red Blood Cells into Peripheral Vein, Percutaneous Approach (ICD-10-PCS; 2016-11-23)
DX: K94.03 Colostomy malfunction (principal); K52.0 Gastroenteritis and colitis due to radiation; K56.5 Intestinal adhesions [bands] with obstruction (postinfection); E44.1 Mild protein-calorie malnutrition; Z68.1 Body mass index [BMI] 19.9 or less, adult; E87.6 Hypokalemia; E83.42 Hypomagnesemia; R79.89 Other specified abnormal findings of blood chemistry; G47.00 Insomnia, unspecified; R05 Cough; R00.0 Tachycardia, unspecified; I10 Essential (primary) hypertension; Z87.891 Personal history of nicotine dependence; Z85.42 Personal history of malignant neoplasm of other parts of uterus

== ENCOUNTER → 2016-11-12 | Outpatient (CLI) | payer MEDICARE, BC | END | disposition home or self-care (01) | LOC: RAD.S 13:23 | DX: C54.9 Malignant neoplasm of corpus uteri, unspecified (principal); C55 Malignant neoplasm of uterus, part unspecified; E22.2 Syndrome of inappropriate secretion of antidiuretic hormone; I10 Essential (primary) hypertension; L72.3 Sebaceous cyst; R22.2 Localized swelling, mass and lump, trunk ==

== ENCOUNTER 2016-12-25 10:46 | Day surgery (SDC) | payer MEDICARE, BC ==
[~2016-12-25] VITALS: Ht 172.7 cm; Wt 47.1 kg
[~2016-12-25 10:46] MED LIST changes: -COLACE-DPS100 MG PO; -FORTAZ1 GM IV; -KLOR-CON 1010 MEQ PO; -MAALOX DPS30 ML PO; -MAG-OX400 MG PO; -MICRO-K DPS10 MEQ PO; -NORCO 5-325 TA1 EACH PO; -NORCO 7.5-3251 EACH PO; -NORMAL SALINE FL5 ML IV; -REMERON DPS30 MG PO; -TYLENOL DPS325 MG PO; -VITAMIN B-121000 MC3 PO; -VITAMIN E1000 UNI3 PO
--- NOTE | 2017-01-11 07:54 | HP ---
ADMIT: 12/25/2016 RM/LOC: [facility] MR#: [id number] [facility]#: [id number] [address] [address] [place] [address] History and Physical SEX: F AGE: 66 : 1950 DATE OF SERVICE: PREOPERATIVE DIAGNOSES: 1. Left distal ureteral obstruction with chronic indwelling stents. 2. Endometrial carcinoma status post radiation therapy. HISTORY OF PRESENT ILLNESS: The patient is an unfortunate female who has a history of endometrial carcinoma status post hysterectomy with recurrence treated with radiation and subsequently developed bowel complications requiring colostomy and also developed issues with left distal ureteral obstruction with chronic indwelling stent. She was actually going to have her kidney removed in July, but with colon issues, this has been placed on hold. She presents today for routine cystoscopy and left ureteral stent change. Risks and benefits have been discussed. Complications of anesthesia, bleeding, infection, injury to bladder, ureter, kidney. We have discussed voiding dysfunction postoperatively. We discussed in the event that retrograde stent placement is not possible, percutaneous nephrostomy tube may be required. The patient did have a recent Pseudomonas urinary tract infection. She is currently on Augmentin therapy. Did have a follow-up urinalysis at Dr. Rosado's office last week and at that time, her urinalysis looked significantly improved. The patient has been feeling well and denies any significant fevers or chills at this point in time. We will proceed as planned. PAST MEDICAL HISTORY: Significant for: 1. Left distal ureteral obstruction with chronic indwelling stent. 2. Endometrial carcinoma. 3. Recent Pseudomonas urinary tract infection, currently on Augmentin therapy. MEDICATIONS: Include: 1. Augmentin. 2. Hydrocodone. 3. Femara. 4. Magnesium oxide. 5. Remeron. 6. Prilosec. 7. Trental. 8. Sulfasalazine. ALLERGIES: NO KNOWN DRUG ALLERGIES. PAST SURGICAL HISTORY: 1. Recent colostomy with colostomy revision. 2. Previous cystoscopy with retrograde stent placement. 3. Previous hysterectomy. 4. Recent radiation therapy to the pelvis. ADMIT: 12/25/2016 RM/LOC: [facility] MR#: [id number] [address] [address] [place] [facility] [place] [address] History and Physical SEX: F AGE: 66 : 1950 SOCIAL HISTORY: Patient denies any tobacco use. FAMILY HISTORY: Noncontributory. PHYSICAL EXAMINATION: GENERAL: The patient is in no apparent distress. HEART: Regular. CHEST: Clear. ABDOMEN: Soft. BACK: No costovertebral tenderness. EXTREMITIES: No cyanosis, clubbing, or edema. ASSESSMENT: Left distal ureteral obstruction with chronic indwelling stent. PLAN: We will proceed with cystoscopy and left ureteral stent change with risks and benefits as outlined above. Bobby Gonzalez MD/ richard JOB #: [id number] CC: Bobby Gonzalez, Attending Physician Stephanie Rosado, Family Physician
[2017-01-21] MEDS ORDERED: MICRO-K DPS10 MEQ PO (13:15)
[2017-01-21] MEDS ORDERED: NORCO 5-325 TA1 EACH PO (13:16)
[2017-01-21] MEDS ORDERED: VITAMIN E1000 UNI3 PO (13:17)
[2017-01-21] MEDS ORDERED: COLACE-DPS100 MG PO (13:20)
[2017-01-21] MEDS ORDERED: MAALOX DPS30 ML PO (13:20)
[2017-01-21] MEDS ORDERED: TYLENOL DPS325 MG PO (13:21)
[2017-01-21] MEDS ORDERED: FORTAZ1 GM IV (13:21)
[2017-01-21] MEDS ORDERED: REMERON DPS30 MG PO (13:21)
--- NOTE | 2017-02-15 08:28 | OR ---
ADMIT: 12/25/2016 RM/LOC: [facility] MR#: [id number] [facility]#: [id number] [address] [address] [place] [address] Operative/Delivery Room Report SEX: F AGE: 66 : 1950 SURGERY DATE: 12/25/2016 SURGEON: Bobby Gonzalez MD PREOPERATIVE DIAGNOSIS: Right distal ureteral obstruction with chronic indwelling stent. History of endometrial carcinoma recurrent status post radiation therapy. POSTOPERATIVE DIAGNOSIS: Right distal ureteral obstruction with chronic indwelling stent. History of endometrial carcinoma recurrent status post radiation therapy. PROCEDURE: Diagnostic cystoscopy with left ureteral stent change and retrograde pyelogram. ANESTHESIA: General. INDICATIONS: The patient is a white female with recurrent endometrial carcinoma status post radiation therapy, now has developed distal ureteral obstruction requiring indwelling stent. She is due for stent change. She has otherwise been doing well. She did have a Pseudomonas urinary tract infection and will receive Zosyn preoperatively. Informed consent was obtained. The patient does consent to procedures. DESCRIPTION OF PROCEDURE: The patient taken to OR #5, placed on the table in supine position. After adequate anesthesia, transferred to dorsal lithotomy position, prepped and draped in the usual fashion. A time-out was taken for patient's name, date of , planned procedure, preoperative antibiotics and allergies. A 22-Armenian cystoscope with 30-degree lens was advanced to the level of bladder. Urethra was unremarkable. Upon entering the bladder, the bladder mucosa though was quite unremarkable. Some minor stent irritation near the left ureteral orifice. There were no other lesions. There were some minor changes consistent with previous radiation therapy. At this point, the distal tip of the stent was engaged with stent grasper, withdrawn to the urethral meatus. An angled tip Glidewire was then advanced through the lumen of the stent in the upper collecting system. Under fluoroscopic visualization, the stent was removed intact. I did pass a 6-Armenian ureteral access catheter into the upper collecting system. The guidewire was removed. Injection of contrast outlines nicely delineated calyceal structures. Mild dilation of the renal pelvis. She does confirm position within the renal pelvis itself. The guidewire was then replaced and the ureteral access catheter removed. The guidewire was backloaded through the cystoscope. Cystoscope was advanced to ADMIT: 12/25/2016 RM/LOC: [facility] MR#: [id number] [address] [id number] [place] [address] Operative/Delivery Room Report SEX: F AGE: 66 : 1950 the level of the bladder. Under direct fluoroscopic visualization, a 6-Armenian, 24 cm double pigtail stent was placed. With removal of guidewire, we had a nice curl within the renal pelvis, nice curl within the urinary bladder. The bladder was decompressed and the scope withdrawn. The patient taken out of dorsal lithotomy position. She was extubated uneventfully and transferred to recovery room in stable condition. DISPOSITION: The patient will be discharged home later on today. She will continue with Augmentin therapy for recent pseudomonal urinary tract infection. She was given a prescription for Lortab 5/325, 1-2 every 4-6 hours as needed for pain, dispense #20. I will see the patient back in a week for urinalysis. Bobby Gonzalez MD/ richard JOB #: [id number] CC: Bobby Gonzalez MD, Attending Physician Stephanie Rosado MD, Family Physician
[2017-05-24] MEDS ORDERED: MAG-OX400 MG PO (20:12)
[2017-05-24] MEDS ORDERED: KLOR-CON 1010 MEQ PO (20:13)
[2017-05-24] MEDS ORDERED: NORCO 7.5-3251 EACH PO (20:14)
[2017-05-24] MEDS ORDERED: VITAMIN B-121000 MC3 PO (20:14)
[2017-05-24] MEDS ORDERED: FORTAZ1 GM IV (20:14)
[2017-05-24] MEDS ORDERED: FEMARA DPS2.5 MG PO (20:14)
[2017-05-24] MEDS ORDERED: NORMAL SALINE FL5 ML IV (20:15)
== END 2016-12-25 15:30 | disposition home or self-care (01) ==
LOC: SSS 10:46
PROC: BT1FYZZ Fluoroscopy of Left Kidney, Ureter and Bladder using Other Contrast (ICD-10-PCS; principal; 2016-12-25)
PROC: 0TP98DZ Removal of Intraluminal Device from Ureter, Via Natural or Artificial Opening Endoscopic (ICD-10-PCS; principal; 2016-12-25)
PROC: 0T768DZ Dilation of Right Ureter with Intraluminal Device, Via Natural or Artificial Opening Endoscopic (ICD-10-PCS; principal; 2016-12-25)
DX: Z46.6 Encounter for fitting and adjustment of urinary device (principal); N13.5 Crossing vessel and stricture of ureter without hydronephrosis; N13.30 Unspecified hydronephrosis; Z90.710 Acquired absence of both cervix and uterus; Z98.890 Other specified postprocedural states; Z79.899 Other long term (current) drug therapy; Z79.891 Long term (current) use of opiate analgesic

== ENCOUNTER 2017-01-14 14:47 | Inpatient (IN) | payer MEDICARE, BC, OTHER ==
[~2017-01-14] VITALS: Ht 172.7 cm; Wt 54.2 kg
[~2017-01-14 14:47] MED LIST changes: -COLACE-DPS100 MG PO; -FORTAZ1 GM IV; -KLOR-CON 1010 MEQ PO; -MAALOX DPS30 ML PO; -MAG-OX400 MG PO; -MICRO-K DPS10 MEQ PO; -NORCO 5-325 TA1 EACH PO; -NORCO 7.5-3251 EACH PO; -NORMAL SALINE FL5 ML IV; -REMERON DPS30 MG PO; -TYLENOL DPS325 MG PO; -VITAMIN B-121000 MC3 PO; -VITAMIN E1000 UNI3 PO
[2017-01-21] MEDS ORDERED: MICRO-K DPS10 MEQ PO (13:15)
[2017-01-21] MEDS ORDERED: NORCO 5-325 TA1 EACH PO (13:16)
[2017-01-21] MEDS ORDERED: VITAMIN E1000 UNI3 PO (13:17)
[2017-01-21] MEDS ORDERED: COLACE-DPS100 MG PO (13:20)
[2017-01-21] MEDS ORDERED: MAALOX DPS30 ML PO (13:20)
[2017-01-21] MEDS ORDERED: REMERON DPS30 MG PO (13:21)
[2017-01-21] MEDS ORDERED: TYLENOL DPS325 MG PO (13:21)
[2017-01-21] MEDS ORDERED: FORTAZ1 GM IV (13:21)
--- NOTE | 2017-01-24 12:10 | HP ---
ADMIT: 01/14/2017 RM/LOC: 524 [facility] MR#: [id number] [address] [facility] [address] [place] [id number] EMEKA WHITTAKER [address] [place] [address] History and Physical SEX: F AGE: 66 : 1950 DATE OF SERVICE: CHIEF COMPLAINT: Dehydration and malnutrition. HISTORY OF PRESENT ILLNESS: Ms. Whittaker is a very pleasant, 66-year-old female. She unfortunately has a past medical history significant for endometrial carcinoma first diagnosed in 11/2009. She apparently had some further surgeries here recently. She ended up with an intestinal obstruction, was admitted and underwent a resection of adhesiolysis as well as recent ureteral stent replacement. I had been following her as an outpatient in the clinic and she had continued to have diarrhea and weight loss and was just really losing ground, therefore we discussed having a G-tube placed in order to help her meet her nutritional needs in the short run. The patient was in agreement with this. Due to her profound dehydration, hyponatremia, hypokalemia, hypomagnesemia, decided to admit her for further treatment of these conditions. The patient otherwise reports that she has not had any other new or different complaints since I had seen in the office last. PAST MEDICAL HISTORY: Significant for: 1. Endometrial carcinoma, status post radiation chemo, treated with a hysterectomy 11/2009. 2. Laparotomy with diverting colostomy 09/2016. 3. Status post nephrostomy tube placement previously. 4. Status post stent placement of her left kidney. 5. Status post nose surgery 1959. 6. Status post cataract surgery on both sides that were removed. 7. Stent placement with re-replacement in her left kidney. 8. Pseudomonas UTI. 9. Vitamin B12 deficiency. 10.Profound dehydration. MEDICATIONS: Currently are: 1. Magnesium oxide p.o. day. 2. Omeprazole 20 mg p.o. day. 3. KCl 10 mEq p.o. day. 4. Hydrocodone as needed. 5. Vitamin E daily. 6. Femara 2.5 daily. 7. Augmentin twice daily. 8. Sulfasalazine 500 mg p.o. t.i.d. 9. Pentoxifylline 400 mg p.o. three times daily. 10.Remeron 30 mg p.o. at bedtime. SOCIAL HISTORY: She is a former smoker, but quit in 2004. Does not use any significant alcohol. FAMILY HISTORY: Positive for heart disease, cancer, hypertension, but no diabetes. ADMIT: 01/14/2017 RM/LOC: 524 [facility] MR#: [id number] [facility] [address] EMEKA Roman [facility] [place] [address] History and Physical SEX: F AGE: 66 : 1950 ALLERGIES: NO KNOWN MEDICAL ALLERGIES. REVIEW OF SYSTEMS: Obtained, was otherwise essentially negative. PHYSICAL EXAMINATION: GENERAL: She is alert and oriented. She is really in no apparent distress. HEENT: Pupils are equal, round, reactive. Oropharynx, dry mucous membranes. NECK: Supple. HEART: Normal rate with a regular rhythm. LUNGS: Clear to auscultation. ABDOMEN: Hyperactive bowel sounds. EXTREMITIES: Have slight almost mottling, but no edema. ASSESSMENT/PLAN: 1. Dehydration. We will go ahead and give her some IV fluids. 2. Hypokalemia, we will replace. 3. Hypomagnesemia, we will replace. 4. Malnutrition. Plan for G-tube in the morning. We will ask nutrition to help. 5. Vitamin B12 deficiency. We will recheck her level in the morning. 6. Urinary tract infection. We will switch her to IV Invanz. She had a recent culture proven Pseudomonas urinary tract infection, has been on p.o. Augmentin. We will follow along. Stephanie Rosado MD/ richard JOB #: [id number] CC: Stephanie Rosado, Attending Physician Tavon Greene, Family Physician
--- NOTE | 2017-01-28 07:28 | DS ---
ADMIT: 01/14/2017 RM/LOC: 524 [facility] MR#: [id number] [address] [address] ZELALEMRA Roman [address] [place] [address] Discharge Summary SEX: F AGE: 66 : 1950 ADMISSION DATE: 01/14/2017 DISCHARGE DATE: 01/20/2017 DISCHARGE DIAGNOSES: 1. Pseudomonas UTI (urinary tract infection). 2. Malnutrition. 3. Status post PEG (percutaneous endoscopic gastrostomy) tube placed. 4. Anemia of chronic disease. 5. Endometrial carcinoma, status post radiation and chemo. 6. Hypokalemia resolved. 7. Hypomagnesemia resolved. 8. Hyponatremia resolved. CONSULTATIONS: General Surgery. PROCEDURES: PEG tube placement. REASON FOR ADMISSION: A 66-year-old female with history of endometrial cancer was seen at the [facility] emergency room with complaints of weight loss, dehydration, hyponatremia, hypokalemia, hypomagnesemia. Was admitted for further evaluation and treatment. For complete details, please see H and P dictated on day of admission. HOSPITAL COURSE: At the time of admission, the patient was placed in a Med/Surg bed. She was started on IV fluids, and Dietary saw her, and Surgery was consulted for possible EGD with PEG and that was undertaken. The patient tolerated the procedure well. She was found to have a Pseudomonas UTI and continued on IV antibiotics. Her potassium and magnesium were replaced. All these levels improved nicely. Slowly reinstituted medications through the PEG tube and tube feedings. Initially, patient did not tolerate the high tube feeds so we backed off and cut her rates down to about 40, which she tolerated well and did have significant residuals or symptoms. Things were set up for Home Health to finish out IV antibiotics and her tube feeds. She ambulated and ate, worked well with therapy. She did have a midline IV catheter placed ADMIT: 01/14/2017 RM/LOC: 524 [facility] MR#: [id number] [address] [address] LE ROYEMEKA [place] [address] Discharge Summary SEX: F AGE: 66 : 1950 for home antibiotics, and once again she did very well with therapy, and plans were made for discharge on 01/20. DISCHARGE MEDICATIONS: Are found per her discharge med sheet. DISCHARGE DIET: As tolerated with supplemental tube feedings overnight. Activity is as tolerated. FOLLOWUP: She will have follow up with Dr. Rosado in the next week or so. She will be followed by [facility] to finish up her IV antibiotics as well as help with her tube feeds and then slowly advancing those to goal per Dietary. Guanako Bhandari MD/ vi JOB #: [id number] CC: Stephanie Rosado MD, Attending Physician Tavon Greene MD, Family Physician
--- NOTE | 2017-02-04 08:57 | OR ---
ADMIT: 01/14/2017 RM/LOC: 524 [facility] MR#: [id number] [address] [address] EMEKA Abel [address] [place] [address] Operative/Delivery Room Report SEX: F AGE: 66 : 1950 SURGERY DATE: 01/15/2017 SURGEON: Tavon Greene MD PREPROCEDURE DIAGNOSES: 1. Failure to thrive. 2. Weight loss. 3. Malnutrition. POSTPROCEDURE DIAGNOSES: 1. Failure to thrive. 2. Weight loss. 3. Malnutrition. PROCEDURE: EGD PEG tube placement. INDICATIONS: The patient is a 66-year-old, with malnutrition, failure to thrive, poor oral intake with a history of ovarian cancer and radiation therapy. Recent colostomy with small bowel resection who presents for EGD and PEG. FINDINGS: The patient was taken to the endoscopy suite. IV sedation was given. She was in the supine position. The gastroscope was introduced down the oropharynx, down the esophagus, into the stomach through the pylorus to the duodenum. The duodenum appeared normal. Stomach showed chronic gastritis. With insufflation, transillumination, and palpation, I found a safe area in the left subcostal region that we prepped with Betadine, injected 1% lidocaine. I made a transverse 0.5 cm skin incision using #11 blade. An Angiocath was placed into the stomach. A wire was threaded through our Angiocath, grasped with the wire loop and brought out through the mouth. The catheter was then threaded over our wire and brought out through the anterior abdominal wall with skin markings at 2.5 cm. We assembled the PEG tube, replaced the gastroscope down the oropharynx, into the stomach showing the G- tube at the antral gastric body junction with no complicating features. The gastroscope was removed. The patient tolerated the procedure without difficulty, transferred to recovery room in good condition. Tavon Greene MD/ richard JOB #: [id number] CC: Stephanie Rosado, Attending Physician Tavon Greene, Family Physician
--- NOTE | 2017-02-04 08:57 | CO ---
ADMIT: 01/14/2017 RM/LOC: 524 [facility] MR#: [id number] [address] [address] YESSICA WHITTAKER [address] [place] [address] Consultation SEX: F AGE: 66 : 1950 DATE OF CONSULTATION: 01/14/2017 ATTENDING PHYSICIAN: Stephanie Rosado CONSULTING PHYSICIAN: Tavon Greene MD REASON FOR CONSULTATION: Malnutrition, need for G-tube. HISTORY OF PRESENT ILLNESS: Yessica is a very pleasant 66-year-old female, who has a fairly complicated history of endometrial carcinoma, status post radiation and chemo with subsequent bowel obstruction for an irradiated section of her bowel stuck up to the right lower quadrant internal abdominal wall, status post laparoscopy with diverting colostomy. 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 The patient reports her PCP today for very little p.o. intake and poor appetite. She just has not felt hungry during her recovery phase and as a result, has been losing weight. She is weak. She denies any pain, nausea, vomiting, or bowel issues. She is mainly only able to eat soft foods, but again is low in quantity. She has now been admitted to [facility]. PAST MEDICAL HISTORY: Significant for metastatic uterine cancer, status post radiation and chemotherapy. PAST SURGICAL HISTORY: 1. Exploratory laparoscopy with diverting colostomy, please see HPI. 2. Ostomy revision with small bowel resection and lysis of adhesions. 3. Nephrostomy tube placement. 4. Stent placement of the left kidney. 5. Cataract surgery. ALLERGIES: NO KNOWN DRUG ALLERGIES. MEDICATIONS: Well documented in chart. FAMILY HISTORY: Noncontributory. SOCIAL HISTORY: The patient is a former smoker. REVIEW OF SYSTEMS: CONSTITUTIONAL: The patient denies any fever, chills, or night sweats. The rest of a comprehensive 10-point review of systems was performed and all other systems are negative. PHYSICAL EXAMINATION: GENERAL: The patient is in no acute distress. She is alert and oriented. HEENT: Head is normocephalic and atraumatic. EOMS are intact. Conjunctivae are free of icterus, erythema, or pallor. Pinnae, free of deformities. Nose, midline. No tracheal deviation. NECK: Supple. ADMIT: 01/14/2017 RM/LOC: 524 [facility] MR#: [id number] [address] [address] WOOD[facility]ESS[address] [facility] [place] [place] [address] Consultation SEX: F AGE: 66 : 1950 SKIN: Negative for jaundice, clubbing, edema, pallor, or cyanosis. LUNGS: Normal respiratory effort. HEART: Distal pulses intact. Regular rate and rhythm. ABDOMEN: Soft, nondistended, and nontender. Surgical scar healing appropriately. Viable stump noted. Ostomy bag intact with stool. NEURO: Grossly intact. ASSESSMENT: Malnutrition, poor p.o. intake. PLAN: The plan is to have the patient undergo EGD with G-tube placement tomorrow performed by Dr. Greene. I discussed the risks, alternatives, benefits, and complications of endoscopy with the patient to which she is in agreement of this plan, had all her questions answered, would like to proceed. She will be admitted what appears to be an observation status, so we will get this done and see how she does tomorrow. Hopefully, we can start tube feeds shortly after G-tube placement. Thank you for the consultation of this patient. LUCERO Camarena / Tavon Greene MD / richard JOB #: [id number] CC: Stephanie Rosado, Attending Physician Tavon Greene, Family Physician
[2017-05-24] MEDS ORDERED: MAG-OX400 MG PO (20:12)
[2017-05-24] MEDS ORDERED: KLOR-CON 1010 MEQ PO (20:13)
[2017-05-24] MEDS ORDERED: FEMARA DPS2.5 MG PO (20:14)
[2017-05-24] MEDS ORDERED: NORCO 7.5-3251 EACH PO (20:14)
[2017-05-24] MEDS ORDERED: VITAMIN B-121000 MC3 PO (20:14)
[2017-05-24] MEDS ORDERED: FORTAZ1 GM IV (20:14)
[2017-05-24] MEDS ORDERED: NORMAL SALINE FL5 ML IV (20:15)
== END 2017-01-20 11:30 | disposition home health service (06) | DRG 640 ==
LOC: 5MS 14:47
PROVIDERS: ADMIT Internal Medicine
PROC: 0DH63UZ Insertion of Feeding Device into Stomach, Percutaneous Approach (ICD-10-PCS; principal; 2017-01-15)
PROC: 3E0G76Z Introduction of Nutritional Substance into Upper GI, Via Natural or Artificial Opening (ICD-10-PCS; 2017-01-16)
DX: E86.0 Dehydration (principal); E43 Unspecified severe protein-calorie malnutrition; N17.9 Acute kidney failure, unspecified; N39.0 Urinary tract infection, site not specified; Z68.1 Body mass index [BMI] 19.9 or less, adult; R19.7 Diarrhea, unspecified; D63.8 Anemia in other chronic diseases classified elsewhere; E87.1 Hypo-osmolality and hyponatremia; E87.6 Hypokalemia; E83.42 Hypomagnesemia; E53.8 Deficiency of other specified B group vitamins; B96.5 Pseudomonas (aeruginosa) (mallei) (pseudomallei) as the cause of diseases classified elsewhere; Z93.3 Colostomy status; Z85.42 Personal history of malignant neoplasm of other parts of uterus; Z87.891 Personal history of nicotine dependence; Z96.0 Presence of urogenital implants

== ENCOUNTER → 2017-01-14 | Outpatient (CLI) | payer MEDICARE, BC ==
[~2017-01-14] MED LIST changes: +COLACE-DPS100 MG PO; +FORTAZ1 GM IV; +KLOR-CON 1010 MEQ PO; +MAALOX DPS30 ML PO; +MAG-OX400 MG PO; +MICRO-K DPS10 MEQ PO; +NORCO 5-325 TA1 EACH PO; +NORCO 7.5-3251 EACH PO; +NORMAL SALINE FL5 ML IV; +REMERON DPS30 MG PO; +TYLENOL DPS325 MG PO; +VITAMIN B-121000 MC3 PO; +VITAMIN E1000 UNI3 PO
== END | disposition home or self-care (01) ==
DX: R19.7 Diarrhea, unspecified (principal)

== ENCOUNTER → 2017-01-23 | Outpatient (CLI) | payer MEDICARE, BC ==
[~2017-01-23] MED LIST changes: +COLACE-DPS100 MG PO; +FORTAZ1 GM IV; +KLOR-CON 1010 MEQ PO; +MAALOX DPS30 ML PO; +MAG-OX400 MG PO; +MICRO-K DPS10 MEQ PO; +NORCO 5-325 TA1 EACH PO; +NORCO 7.5-3251 EACH PO; +NORMAL SALINE FL5 ML IV; +REMERON DPS30 MG PO; +TYLENOL DPS325 MG PO; +VITAMIN B-121000 MC3 PO; +VITAMIN E1000 UNI3 PO
== END | disposition home or self-care (01) ==
LOC: THER.SSS 16:42
DX: E61.2 Magnesium deficiency (principal)

== ENCOUNTER → 2017-05-09 | Outpatient (CLI) | payer MEDICARE, BC ==
[~2017-05-09] MED LIST changes: -KLOR-CON 1010 MEQ PO; -MAG-OX400 MG PO; -NORCO 7.5-3251 EACH PO; -NORMAL SALINE FL5 ML IV; -VITAMIN B-121000 MC3 PO
== END | disposition home or self-care (01) ==
LOC: THER.S 05-07 08:36
DX: E83.42 Hypomagnesemia (principal)